=== PATIENT | male | born 1980 | race Caucasian/White ===

== ENCOUNTER 2022-09-11 16:06 | Emergency (ER) | payer BC, SELFPAY ==
--- NOTE | ~2022-09-11 | XR_ITS ---
EXAMINATION: XR HAND, LEFT CLINICAL INFORMATION: Left index finger pain COMPARISON: None TECHNIQUE: PA, lateral, and oblique views of the left hand. FINDINGS: Soft tissue swelling of the second digit with irregularity at the level of the distal interphalangeal joint. No radiopaque foreign body. No fracture or malalignment. Joint spaces are maintained. No osseous erosion. XR/XR hand LT 2V IMPRESSION: Soft tissue swelling of the second digit with irregularity at the distal interphalangeal joint. No radiopaque foreign body. No osseous abnormality.
[2022-09-11 16:11] VITALS: BP 144/71; PULSE 73; RESP 18; TEMP 36.6; O2SAT 98; BMI 18.1
--- NOTE | 2022-09-11 16:11 | ED.WOUNDLAC ---
HPI - Wound/Laceration General Chief Complaint: Wound/Laceration <Domi Hayden NP - Last Filed: 09/11/22 16:22> Stated Complaint: finger lac <Domi Hayden NP - Last Filed: 09/11/22 16:22> Time Seen by Provider: 09/11/22 17:00 <Domi Hayden NP - Last Filed: 09/11/22 16:22> Source: patient <MELLY Deutsch - Last Filed: 09/11/22 18:35> Mode of arrival: ambulatory <MELLY Deutsch Last Filed: 09/11/22 18:35> Limitations: no limitations <MELLY Deutsch Last Filed: 09/11/22 18:35> History of Present Illness HPI narrative: 42 yo right hand dominant male presenting with a laceration to tip of the left index finger sustained with a hand saw about 3 hours ago while cutting wood. He was in [place] and drove home with his hand out the window. He reports pain and throbbing sensation at the tip of the finger. He wrapped tightly with a bandage, no active bleeding on arrival. He states his tetanus shot is up-to-date. He is able to fully extend and flex the finger. He denies any numbness but he does have some tingling after taking up the bandage. <MELLY Deutsch - Last Filed: 09/11/22 18:35> Onset (ago): hour(s) <MELLY Deutsch Last Filed: 09/11/22 18:35> Extremity Location: left: hand <MELLY Deutsch Last Filed: 09/11/22 18:35> Place: work <MELLY Deutsch Last Filed: 09/11/22 18:35> Patient tetanus UTD: Yes <MELLY Deutsch Last Filed: 09/11/22 18:35> Context: accidental <MELLY Deutsch Last Filed: 09/11/22 18:35> Associated symptoms: pain <MELLY Deutsch Last Filed: 09/11/22 18:35> Treatments prior to arrival: bandage <MELLY Deutsch Last Filed: 09/11/22 18:35> Related Data Home Medications: Previous Rx's Medication Instructions Recorded cephalexin 500 mg capsule 500 mg PO Q6H 4 days #16 caps 09/11/22 ibuprofen 600 mg tablet 600 mg PO Q8H PRN pain #10 tabs 09/11/22 <Domi Hayden NP - Last Filed: 09/11/22 16:22> Allergies/Adverse Reactions: Allergies Allergy/AdvReac Type Severity Reaction Status Date / Time Unable to Assess Allergy Verified 09/11/22 16:18 <Domi Hayden NP - Last Filed: 09/11/22 16:22> Review of Systems Review of Systems: Yes all other systems are reviewed and are negative <MELLY Deutsch - Last Filed: 09/11/22 18:35> [facility] Social History Social History: Social History Advance Directives: No Advance Directives Information Provided: No <Domi Hayden NP - Last Filed: 09/11/22 16:22> Physical Exam Vital Signs: Vital Signs: Last Vital Signs Temp 98 F 09/11/22 16:11 Pulse 73 09/11/22 16:11 Resp 18 09/11/22 16:11 BP 144/71 H 09/11/22 16:11 Pulse Ox 98 09/11/22 16:11 O2 Del Method 09/11/22 16:11 BMI result Body Mass Index 18.1 <Domi Hayden NP - Last Filed: 09/11/22 16:22> Vital Signs: Last Vital Signs Temp 98 F 09/11/22 16:11 Pulse 73 09/11/22 16:11 Resp 18 09/11/22 16:11 BP 144/71 H 09/11/22 16:11 Pulse Ox 98 09/11/22 16:11 O2 Del Method 09/11/22 16:11 BMI result Body Mass Index 18.1 <MELLY Deutsch - Last Filed: 09/11/22 18:35> Appearance: Alert. Oriented X3. No acute distress. HEENT: normal inspection CVS: Normal heart rate and rhythm. Pulses normal. Respiratory: No respiratory distress. Skin: Skin warm and dry. Normal skin color. Normal skin turgor. No rashes. Extremities: left index finger with a 1.5 cm irregular, linear laceration to the pulp of the tip of the digit, normal ROM of the finger, cap refill <3 sec. no active bleeding. Neuro: Oriented X 3. No motor deficit. No sensory deficit. <MELLY Deutsch Last Filed: 09/11/22 18:35> Course Course Course Narrative: This is a rapid medical exam. deferred additional HPI, ROS, PE to primary provider. 42yo male right handed, no medical problems here with laceration to left index finger from a hand saw just [employer]. Tetanus UTD. Over the left dorsal index finger there is 2cm laceration. FROM of digit. Will obtain x-ray, will need procedure note. VSS <Domi Hayden NP - Last Filed: 09/11/22 16:22> Reevaluation(s) Reevaluation #1: X-ray without any bony involvement. Tolerated procedure, will place on prophylactic antibiotics. stable for discharge home. wound care d/w patient and <MELLY Deutsch Last Filed: 09/11/22 18:35> Medications Administered Discontinued Medications Generic Name Dose Route Start Last Admin Trade Name Freq PRN Reason Stop Dose Admin Lidocaine HCl 5 ml 09/11/22 17:15 09/11/22 17:38 Lidocaine Hcl 2 % Mpf 5 Ml Vial SUBCUT 09/11/22 17:16 5 ml ONCE ONE Administration <Domi Hayden NP - Last Filed: 09/11/22 16:22> Medications Administered Discontinued Medications Generic Name Dose Route Start Last Admin Trade Name Freq PRN Reason Stop Dose Admin Lidocaine HCl 5 ml 09/11/22 17:15 09/11/22 17:38 Lidocaine Hcl 2 % Mpf 5 Ml Vial SUBCUT 09/11/22 17:16 5 ml ONCE ONE Administration <MELLY Deutsch Last Filed: 09/11/22 18:35> Medical Decision Making Differential Diagnosis Differential Diagnoses: The differential diagnosis associated with the presentation includes <MELLY Deutsch Last Filed: 09/11/22 18:35> superficial laceration, deep laceration, tendon laceration, contaminated wound <MELLY Deutsch Last Filed: 09/11/22 18:35> Independent Interpretation I performed an independent interpretation of an: Plain X-Ray <MELLY Deutsch - Last Filed: 09/11/22 18:35> Interpretation: left first digit with soft tissue swelling, no fracure seen <MELLY Deutsch - Last Filed: 09/11/22 18:35> Radiology Impression Discussion of test interpretation with radiology: I have reviewed the radiologist's reading. <MELLY Deutsch - Last Filed: 09/11/22 18:35> Radiologist Impression: XR/XR hand LT 2V IMPRESSION: Soft tissue swelling of the second digit with irregularity at the distal interphalangeal joint. No radiopaque foreign body. No osseous abnormality. ? <MELLY Deutsch - Last Filed: 09/11/22 18:35> Independent Historian Clinical information obtained from an independent historian. History obtained from or confirmed by: Spouse <MELLY Deutsch - Last Filed: 09/11/22 18:35> Prescription Management I considered prescription management with: Pain Medication and Antibiotic <MELLY Deutsch - Last Filed: 09/11/22 18:35> Procedures Laceration Laceration 1: Site: hand <MELLY Deutsch - Last Filed: 09/11/22 18:35> Side (If applicable): left <MELLY Deutsch - Last Filed: 09/11/22 18:35> Size (cm): 1.5 <MELLY Deutsch - Last Filed: 09/11/22 18:35> Description: linear and irregular <MELLY Deutsch - Last Filed: 09/11/22 18:35> Depth: simple, single layer and involves muscle layer <MELLY Deutsch - Last Filed: 09/11/22 18:35> Local Anesthetic: lidocaine 1% <MELLY Deutsch - Last Filed: 09/11/22 18:35> Amount of anesthesia used (mL): 1 <MELLY Deutsch Last Filed: 09/11/22 18:35> Pre-repair: wound explored, irrigated extensively and deep structures intact <MELLY Deutsch - Last Filed: 09/11/22 18:35> Skin layer closed with: nylon <MELLY Deutsch - Last Filed: 09/11/22 18:35> Size (cm): 4-0 <MELLY Deutsch - Last Filed: 09/11/22 18:35> Number of sutures: 6 <MELLY Deutsch - Last Filed: 09/11/22 18:35> Technique: simple, interrupted <MELLY Deutsch - Last Filed: 09/11/22 18:35> Nerve Block Nerve Block 1: Time out performed: Yes <MELLY Deutsch - Last Filed: 09/11/22 18:35> Local Anesthetic: lidocaine 1% <MELLY Deutsch - Last Filed: 09/11/22 18:35> Amount of anesthesia used (mL): 5 <MELLY Deutsch - Last Filed: 09/11/22 18:35> Side: left <MELLY Detusch - Last Filed: 09/11/22 18:35> Nerve Blocks: digital <MELLY Deutsch - Last Filed: 09/11/22 18:35> Procedure Successful: Yes <MELLY Deutsch - Last Filed: 09/11/22 18:35> Patient Tolerated Procedure: well and no complications <MELLY Deutsch - Last Filed: 09/11/22 18:35> Complications: none <MELLY Deutsch - Last Filed: 09/11/22 18:35> Critical Care Time Critical Care Time Critical Care Time: No <MELLY Deutsch - Last Filed: 09/11/22 18:35> Discharge Plan Discharge Clinical Impression: Finger laceration <Domi Hayden NP - Last Filed: 09/11/22 16:22> Patient Disposition: Home, Self-Care <Domi Hayden NP - Last Filed: 09/11/22 16:22> Instructions: Finger Laceration (ED) <Domi Hayden NP - Last Filed: 09/11/22 16:22> Additional Instructions: You will need your stitches out in 7- 10 days. See you doctor for this or come back to the ER and we will remove them. Do not get wet for 24 hours, after that you can briefly wash with soap and water then pat dry. Keep wound clean and covered. Allow open to air when you are home. Take the prescribed antibiotic as directed to help prevent infection. Do not miss any doses and complete the entire course. Do not submerge in water, no swimming. If you develop signs of infection including increased pain, swelling, redness or drainage of pus come back to the ER for further evaluation. <Domi Hayden NP - Last Filed: 09/11/22 16:22> Prescriptions: New cephalexin 500 mg capsule 500 mg PO Q6H 4 Days Qty: 16 0RF ibuprofen 600 mg tablet 600 mg PO Q8H PRN (Reason: pain) Qty: 10 0RF <Domi Hayden NP - Last Filed: 09/11/22 16:22>
[2022-09-11] MEDS: Lidocaine HCl 2 % MPF 5 ML VIAL SUBCUT (17:38)
== END 2022-09-11 19:25 | disposition home or self-care (01) ==
PROVIDERS: Emergency Provider Emergency Medicine
DX: S61.211A Laceration without foreign body of left index finger without damage to nail, initial encounter (principal); W31.82XA Contact with other commercial machinery, initial encounter; Y93.89 Activity, other specified; Y92.9 Unspecified place or not applicable; Y99.0 Civilian activity done for income or pay
CPT/HCPCS: 12041; 73120; 99281; 99284